=== PATIENT | female | born 1995 | race Caucasian/White ===

== ENCOUNTER → 2024-12-02 09:33 | Outpatient (REF) | payer OTHER, SELFPAY | LOC: WDC 09:33 | PROVIDERS: ATTENDING PHYSICIAN Student in an Organized Health Care Education/Training Program | DX: N63.10 Unspecified lump in the right breast, unspecified quadrant (principal); N63.12 Unspecified lump in the right breast, upper inner quadrant | CPT/HCPCS: 76642 ==